=== PATIENT | male | born 1975 | race African-American/Black ===

== ENCOUNTER 2017-08-17 09:19 | Emergency (ER) | payer OTHER ==
[~2017-08-17] VITALS: Ht 180.3 cm; Wt 130.6 kg
[~2017-08-17 09:19] MED LIST: NOHOMEMEDICATIONS; NORCO 5-325 TA1 EACH PO; PERCOCET 5-3251 EACH PO
[2017-08-17 09:36] VITALS: BP 153/100
[2017-08-17] MEDS ORDERED: METFORMIN HCL500 MG PO (09:52)
[2017-08-17] MEDS ORDERED: LANTUS100 UNIT/M SUBQ (09:52)
[2017-08-17] MEDS ORDERED: NORFLEX100 MG PO (10:03)
[2017-08-17] MEDS ORDERED: SENNA-DOCUSATE1 EAC1 PO (10:03)
[2017-08-17] MEDS ORDERED: NORCO 7.5-3251 EACH PO (10:03)
[2017-08-17] MEDS ORDERED: IBUPROFEN 800800 M1 PO (10:03)
== END 2017-08-17 11:41 | disposition home or self-care (01) ==
LOC: ER 09:19
DX: S16.1XXA Strain of muscle, fascia and tendon at neck level, initial encounter (principal); S39.012A Strain of muscle, fascia and tendon of lower back, initial encounter; S60.222A Contusion of left hand, initial encounter; E11.9 Type 2 diabetes mellitus without complications; J45.909 Unspecified asthma, uncomplicated; Z88.2 Allergy status to sulfonamides; V89.2XXA Person injured in unspecified motor-vehicle accident, traffic, initial encounter; Y92.89 Other specified places as the place of occurrence of the external cause; Y93.89 Activity, other specified; Y99.8 Other external cause status

== ENCOUNTER 2017-08-21 00:16 | Emergency (ER) | payer BC ==
[~2017-08-21] VITALS: Ht 177.8 cm; Wt 131.5 kg
[~2017-08-21 00:16] MED LIST changes: +IBUPROFEN 800800 M1 PO; +LANTUS100 UNIT/M SUBQ; +METFORMIN HCL500 MG PO; +NORCO 7.5-3251 EACH PO; +NORFLEX100 MG PO; +SENNA-DOCUSATE1 EAC1 PO
[2017-08-21 00:17] VITALS: BP 139/94
== END 2017-08-21 01:16 | disposition home or self-care (01) ==
LOC: ER 00:16
DX: S16.1XXD Strain of muscle, fascia and tendon at neck level, subsequent encounter (principal); M54.6 Pain in thoracic spine; J45.909 Unspecified asthma, uncomplicated; E11.9 Type 2 diabetes mellitus without complications; Z88.2 Allergy status to sulfonamides; V89.2XXD Person injured in unspecified motor-vehicle accident, traffic, subsequent encounter; Y92.89 Other specified places as the place of occurrence of the external cause; Y93.89 Activity, other specified; Y99.8 Other external cause status